=== PATIENT | female | born 2000 | race Caucasian/White ===

== ENCOUNTER 2022-10-29 15:06 | Day surgery (SDC) | payer BC ==
[~2022-10-29 15:06] MED LIST: Bupivacaine 0.5% 30 ML SDV ONE; Lidocaine 1% 2 ML ONE; Ondansetron 4 MG/2 ML SDV ONE; Propofol 200 MG/20 ML SDV ONE; Rocuronium 50 MG/5 ML Vial ONE
[2022-10-29] MEDS ORDERED: fentaNYL 100 MCG/2 ML SDV ONE (15:07)
[2022-10-29] MEDS ORDERED: Ondansetron 4 MG/2 ML SDV IVPUSH PRN (15:39)
[2022-10-29] MEDS ORDERED: HYDROmorphone 0.5 MG/0.5 ML Syringe IVPUSH PRN (15:39)
[2022-10-29] MEDS ORDERED: fentaNYL 100 MCG/2 ML SDV IVPUSH PRN (15:39)
[2022-10-29 15:58] LABS: BASOPHILS ABSOLUTE AUTO 0.02 K/mm3 (0.01-0.08); BASOPHILS PERCENT AUTO 0.2 % (0.1-1.2); EOSINOPHILS ABSOLUTE AUTO 0.15 K/mm3 (0.04-0.36); EOSINOPHILS PERCENT AUTO 1.4 (0.7-5.8); HEMATOCRIT 42.8 % (34.1-44.9); HEMOGLOBIN 13.8 gm/dl (11.2-15.7); IMMATURE GRAN ABSOLUTE AUTO 0.02 K/mm3 (0.00-0.10); IMMATURE GRAN PERCENT AUTO 0.2 % (<=1.0); LYMPHOCYTES ABSOLUTE AUTO 2.25 K/mm3 (1.18-3.74); LYMPHOCYTES PERCENT AUTO 21.4 % (19.3-51.7); MEAN CORPUSCULAR HEMOGLOBIN 29.1 pg (25.6-32.2); MEAN CORPUSCULAR HGB CONC 32.2 g/dl (32.2-35.5); MEAN CORPUSCULAR VOLUME 90.1 fl (79.4-94.8); MEAN PLATELET VOLUME 10.7 fl (9.4-12.3); MONOCYTES PERCENT AUTO 6.7 % (4.7-12.5); NEUTROPHILS ABSOLUTE AUTO 7.36 K/mm3 (1.56-6.13); NEUTROPHILS PERCENT AUTO 70.1 % (34.0-71.1); PLATELET COUNT,PLT 249 K/mm3 (182-369); RED BLOOD CELL COUNT 4.75 M/mm3 (3.98-5.22)
[2022-10-29] MEDS ORDERED: Lactated Ringers 1,000 ML IV SCH (16:00)
[2022-10-29] MEDS ORDERED: Midazolam 1 MG/ML 2 ML SDV ONE (16:07)
[2022-10-29] MEDS ORDERED: ceFAZolin 2 GM Vial ONE (16:17)
[2022-10-29] MEDS ORDERED: Rocuronium 50 MG/5 ML Vial ONE (16:43)
[2022-10-29] MEDS ORDERED: Sugammadex Sodium 200 MG/2 ML VIAL ONE (16:43)
[2022-10-29] MEDS ORDERED: HYDROmorphone 0.5 MG/0.5 ML Syringe ONE (16:59)
[2022-10-29] MEDS ORDERED: Ketorolac 30 MG/ML SDV IVPUSH ONE (17:07)
[2022-10-29] MEDS ORDERED: Acetaminophen/oxyCODONE 325-5 MG Tab PO ONE (17:09)
== END 2022-10-29 19:15 | disposition home or self-care (01) ==
LOC: JD.SDS 15:06
PROVIDERS: ATTEND Obstetrics & Gynecology
DX: O00.102 Left tubal pregnancy without intrauterine pregnancy (principal); F41.9 Anxiety disorder, unspecified; Z88.8 Allergy status to other drugs, medicaments and biological substances
CPT/HCPCS: 36415; 59151; 85025; 86850; 86900; 86901; A9270; J0690; J1170; J1885; J2250; J2405; J2704; J3010; J3490; J7120; 00840

== ENCOUNTER 2022-12-22 19:57 | Emergency (ER) | payer BC ==
[2022-12-22 20:47] LABS: BASOPHILS ABSOLUTE AUTO 0.03 K/mm3 (0.01-0.08); BASOPHILS PERCENT AUTO 0.3 % (0.1-1.2); EOSINOPHILS ABSOLUTE AUTO 0.12 K/mm3 (0.04-0.36); EOSINOPHILS PERCENT AUTO 1.3 (0.7-5.8); HEMATOCRIT 42.5 % (34.1-44.9); IMMATURE GRAN ABSOLUTE AUTO 0.02 K/mm3 (0.00-0.10); IMMATURE GRAN PERCENT AUTO 0.2 % (<=1.0); LYMPHOCYTES ABSOLUTE AUTO 2.03 K/mm3 (1.18-3.74); LYMPHOCYTES PERCENT AUTO 21.4 % (19.3-51.7); MEAN CORPUSCULAR HEMOGLOBIN 28.6 pg (25.6-32.2); MEAN CORPUSCULAR HGB CONC 32.9 g/dl (32.2-35.5); MEAN CORPUSCULAR VOLUME 86.9 fl (79.4-94.8); MONOCYTES PERCENT AUTO 8.4 % (4.7-12.5); NEUTROPHILS PERCENT AUTO 68.4 % (34.0-71.1); PLATELET COUNT,PLT 259 K/mm3 (182-369); RED BLOOD CELL COUNT 4.89 M/mm3 (3.98-5.22)
[2022-12-22 21:13] LABS: A/G RATIO 1.2 (1-2); ALANINE AMINOTRANSFERASE,ALT 24 U/L (14-59); ALBUMIN 3.9 g/dl (3.4-5.0); ALKALINE PHOSPHATASE 83 U/L (46-116); ASPARTATE AMNIOTRANSFERASE,AST 14 U/L (15-37); BILIRUBIN TOTAL 0.4 mg/dL (0.2-1.0); BLOOD UREA NITROGEN,BUN 12 mg/dL (7-18); CALCIUM 9.6 mg/dL (8.5-10.1); CARBON DIOXIDE,CO2 23 mEq/L (21-32); CHLORIDE,CL 107 mEq/L (98-107); CREATININE 0.8 mg/dL (0.55-1.02); ESTIMATED GFR 106 mL/min (>60); GLUCOSE RANDOM 106 mg/dL (70-99); PROTEIN TOTAL,TP 7.3 g/dl (6.4-8.2); SODIUM,NA 139 mEq/L (136-145); TROPONIN I HIGH SENSITIVITY 4 pg/mL (<=51)
[2022-12-22] MEDS ORDERED: Aluminum Hydroxide/Magnesium Hydroxide/Simethicone Susp 30 ML Cup PO ONE (21:49)
== END 2022-12-22 23:51 | disposition home or self-care (01) ==
LOC: JD.ED 19:57
DX: R07.89 Other chest pain (principal); Z88.8 Allergy status to other drugs, medicaments and biological substances
CPT/HCPCS: 36415; 71045; 80053; 84484; 85025; 85379; 93005; 93246; 99285; A9270; 93010; 99283

== ENCOUNTER 2022-12-24 09:18 | Emergency (ER) | payer BC | END 2022-12-24 11:17 | disposition home or self-care (01) | LOC: JD.ED 09:18 | DX: R07.89 Other chest pain (principal); Z88.8 Allergy status to other drugs, medicaments and biological substances | CPT/HCPCS: 93010; 99282; 99284 ==

== ENCOUNTER 2022-12-27 23:33 | Emergency (ER) | payer BC ==
[2022-12-28] MEDS ORDERED: Ketorolac 60 MG/2 ML SDV IM ONE (01:52)
== END 2022-12-28 02:10 | disposition home or self-care (01) ==
LOC: JD.ED 23:33
DX: R07.89 Other chest pain (principal); Z88.8 Allergy status to other drugs, medicaments and biological substances
CPT/HCPCS: 99283

== ENCOUNTER 2023-01-05 21:01 | Emergency (ER) | payer BC ==
[2023-01-05 21:47] LABS: BASOPHILS ABSOLUTE AUTO 0.02 K/mm3 (0.01-0.08); BASOPHILS PERCENT AUTO 0.2 % (0.1-1.2); EOSINOPHILS ABSOLUTE AUTO 0.06 K/mm3 (0.04-0.36); EOSINOPHILS PERCENT AUTO 0.7 (0.7-5.8); HEMATOCRIT 42.6 % (34.1-44.9); HEMOGLOBIN 14.2 gm/dl (11.2-15.7); IMMATURE GRAN ABSOLUTE AUTO 0.02 K/mm3 (0.00-0.10); IMMATURE GRAN PERCENT AUTO 0.2 % (<=1.0); LYMPHOCYTES ABSOLUTE AUTO 2.05 K/mm3 (1.18-3.74); LYMPHOCYTES PERCENT AUTO 25.6 % (19.3-51.7); MEAN CORPUSCULAR HEMOGLOBIN 28.9 pg (25.6-32.2); MEAN CORPUSCULAR HGB CONC 33.3 g/dl (32.2-35.5); MEAN CORPUSCULAR VOLUME 86.8 fl (79.4-94.8); MEAN PLATELET VOLUME 11.2 fl (9.4-12.3); MONOCYTES ABSOLUTE AUTO 0.63 K/mm3 (0.24-0.36); MONOCYTES PERCENT AUTO 7.9 % (4.7-12.5); NEUTROPHILS ABSOLUTE AUTO 5.23 K/mm3 (1.56-6.13); NEUTROPHILS PERCENT AUTO 65.4 % (34.0-71.1); PLATELET COUNT,PLT 252 K/mm3 (182-369); RED BLOOD CELL COUNT 4.91 M/mm3 (3.98-5.22); WHITE BLOOD CELL COUNT,WBC 8.01 K/mm3 (3.98-10.04)
[2023-01-05 22:17] LABS: A/G RATIO 1.2 (1-2); ALBUMIN 4.1 g/dl (3.4-5.0); ANION GAP 20.1 (5-15); BILIRUBIN TOTAL 0.6 mg/dL (0.2-1.0); BUN/CREATININE RATIO 11.4 (14-18); CALCIUM 9.4 mg/dL (8.5-10.1); CREATININE 0.7 mg/dL (0.55-1.02); EST CRCL DRUG DOSING (CG) 117.01 mL/min; MAGNESIUM 1.8 mg/dL (1.8-2.4); POTASSIUM,K 3.1 mEq/L (3.5-5.1); PROTEIN TOTAL,TP 7.6 g/dl (6.4-8.2); TSH 1.078 uIU/mL (0.358-3.74)
[2023-01-05] MEDS ORDERED: Potassium Chloride 20 MEQ Tab.ER PO ONE (22:25)
== END 2023-01-05 23:45 | disposition home or self-care (01) ==
LOC: JD.ED 21:01
DX: R00.2 Palpitations (principal); E87.6 Hypokalemia; Z79.899 Other long term (current) drug therapy; Z88.8 Allergy status to other drugs, medicaments and biological substances
CPT/HCPCS: 36415; 80053; 83735; 84443; 85025; 93005; 99285; A9270